=== PATIENT | female | born 1980 | race Caucasian/White ===

== ENCOUNTER 2018-07-16 06:21 | Emergency (ER) | payer OTHER ==
[~2018-07-16] VITALS: Ht 172.7 cm; Wt 90.7 kg
[2018-07-16 06:25] VITALS: Ht 172.7 cm; Wt 90.7 kg
[2018-07-16 07:56] VITALS: BP 122/80
== END 2018-07-16 07:56 | disposition other institution (70) ==
LOC: ED 06:21
DX: Z02.89 Encounter for other administrative examinations (principal)